=== PATIENT | male | born 1965 | race Two or more races ===

== ENCOUNTER 2019-05-08 00:57 | Emergency (ER) | payer MEDICAID ==
[~2019-05-08] VITALS: Ht 172.7 cm; Wt 76.2 kg
[2019-05-08 01:06] VITALS: BP 147/95
--- NOTE | 2019-05-08 01:06 | NUR ---
ED Nurse Note: Patient walked in to ER c/o difficulty breathing worsen when lying down since last night. Denies pain. O2 sat 99% RA. Afebrile. VSS.
[2019-05-08] MEDS ORDERED: LIPITOR80 MG ORAL (01:08)
[2019-05-08] MEDS ORDERED: FLOMAX0.4 MG ORAL (01:08)
[2019-05-08] MEDS ORDERED: CIALIS10 MG ORAL (01:08)
[2019-05-08] MEDS ORDERED: GLUCOPHAGE1000 MG ORAL (01:08)
[2019-05-08] MEDS ORDERED: LOSARTAN POTASS25 M1 PO (01:08)
--- NOTE | 2019-05-08 01:28 | NUR ---
ED Nurse Note: IV line established. Blood collected and sent to lab.
--- NOTE | 2019-05-08 01:34 | Emergency Room Report ---
History of Present Illness General Chief Complaint: Dyspnea/Respdistress Source: Patient Present Illness [facility] Disclaimer: Please note that this report is being documented using DisabledParkON technology. This can lead to erroneous entry secondary to incorrect interpretation by the dictating instrument. HPI: 54-year-old male with history of hypertension, hyperlipidemia, diabetes, BPH presents for evaluation of shortness of breath. Symptoms began yesterday. He was trying to lay down and go to sleep when he found himself to be quite short of breath without chest pain. Worse with laying supine and somewhat relieved by sitting upright. Denies any lower extremity swelling but notes a heaviness in his legs bilaterally. Denies history of CAD, CHF or renal failure. He is otherwise compliant with his medications. Reported feeling feverish but no objective temperatures were recorded. Denies cough, vomiting, diarrhea, rash, chills or URI symptoms. Did not get a flu shot this year. PMH: Hypertension, hyperlipidemia, BPH, diabetes PSH: Eye surgery unspecified Allergies: Denies Social Hx: Denies alcohol, tobacco or drug use Allergies: Coded Allergies: No Known Allergies (Unverified , 05/08/19) Nursing Documentation-PMH Past Medical History: No History, Except For Hx Cardiac Problems: No - high cholesterol Hx Hypertension: Yes Hx Diabetes: Yes Review of Systems All Other Systems: negative except mentioned in HPI Physical Exam Vital Signs Date Time Temp Pulse Resp B/P (MAP) Pulse Ox O2 Delivery O2 Flow Rate FiO2 05/08/19 01:00 97.7 78 16 147/95 (112) 99 Room Air General: Awake and alert, no acute distress HEENT: NC/AT. EOMI. Cardiovascular: RRR. S1 and S2 normal. No murmur appreciated Resp: Normal work of breathing. No cough, wheezing or crackles appreciated Abdomen: Abdomen is soft, nondistended. Nontender Skin: Intact. No abrasions, laceration or rash over the exposed skin MSK: Normal tone and bulk. Moving all extremities. No obvious deformity. Neuro: Awake and alert. Mentating appropriately. Medical Decision Making Diagnostic Impression: Primary Impression: Upper respiratory infection ER Course 54-year-old male presents for evaluation of 2 nights of orthopnea without chest pain. Differential includes was not limited to CHF, asthma, ACS, bronchitis, pneumonia, viral syndrome, GERD, bronchospasm, pericardial effusion, pleural effusion, pneumothorax. He arrives with stable vital signs saturating 100% on room air. EKG obtained on triage shows no evidence of ischemia. Will obtain x- ray, labs including cardiac enzymes and BN peptide. Laboratory Tests Test 05/08/19 01:28 White Blood Count 5.0 K/UL (4.8-10.8) Red Blood Count 5.27 M/UL (4.70-6.10) Hemoglobin 14.5 G/DL (14.2-18.0) Hematocrit 44.0 % (42.0-52.0) Mean Corpuscular Volume 84 FL (80-99) Mean Corpuscular Hemoglobin 27.6 PG (27.0-31.0) Mean Corpuscular Hemoglobin Concent 33.0 G/DL (32.0-36.0) Red Cell Distribution Width 12.2 % (11.6-14.8) Platelet Count 127 K/UL (150-450) L Mean Platelet Volume 9.5 FL (6.5-10.1) Neutrophils (%) (Auto) 60.8 % (45.0-75.0) Lymphocytes (%) (Auto) 30.9 % (20.0-45.0) Monocytes (%) (Auto) 6.0 % (1.0-10.0) Eosinophils (%) (Auto) 1.7 % (0.0-3.0) Basophils (%) (Auto) 0.6 % (0.0-2.0) Sodium Level 143 MMOL/L (136-145) Potassium Level 3.9 MMOL/L (3.5-5.1) Chloride Level 105 MMOL/L (98-107) Carbon Dioxide Level 27 MMOL/L (21-32) Anion Gap 11 mmol/L (5-15) Blood Urea Nitrogen 14 mg/dL (7-18) Creatinine 1.0 MG/DL (0.55-1.30) Estimate Glomerular Filtration Rate > 60 mL/min (>60) Glucose Level 115 MG/DL (74-106) H Calcium Level 9.1 MG/DL (8.5-10.1) Total Bilirubin 0.7 MG/DL (0.2-1.0) Aspartate Amino Transferase (AST) 30 U/L (15-37) Alanine Aminotransferase (ALT) 31 U/L (12-78) Alkaline Phosphatase 58 U/L (46-116) Troponin I 0.000 ng/mL (0.000-0.056) Pro-B-Type Natriuretic Peptide 24 pg/mL (0-125) Total Protein 7.4 G/DL (6.4-8.2) Albumin 4.4 G/DL (3.4-5.0) Globulin 3.0 g/dL Albumin/Globulin Ratio 1.5 (1.0-2.7) EKG Diagnostic Results EKG Time: 01:32 Rate: normal Rhythm: NSR ST Segments: no acute changes Other Impression Sinus rhythm, normal axis, normal intervals, no ST segment changes. Rhythm Strip Diag. Results Rhythm Strip Time: 01:32 EP Interpretation: yes Rate: 60s Rhythm: NSR, no PVC's, no ectopy Chest X-Ray Diagnostic Results Chest X-Ray Diagnostic Results : Chest X-Ray Ordered: Yes # of Views/Limited/Complete: 1 View Indication: Shortness of Breath EP Interpretation: Yes Interpretation: no consolidation, no effusion, no pneumothorax, no acute cardiopulmonary disease Impression: No acute disease Electronically Signed by: Electronically signed by Dr. Kevan Sherman Reevaluation Time: 02:36 Last Vital Signs Date Time Temp Pulse Resp B/P (MAP) Pulse Ox O2 Delivery O2 Flow Rate FiO2 05/08/19 01:06 97.7 78 16 147/95 99 Room Air Reevaluation Impression Labs have returned within normal limits. Normal renal function, negative troponin, no significant elevation and BN peptide. Chest x-ray shows no infiltrate or effusion. Believe the patient is likely suffering from a upper viral infection and was given an albuterol treatment as well as steroids for throat pain and mild swelling. He will be continued on steroids. He states he felt somewhat better since arriving in the emergency department. He will follow -up with his PMD tomorrow. Discussed reasons to return to the emergency department. Stable for outpatient follow-up. He understands and agrees with this treatment plan. Disposition: HOME, SELF-CARE Condition: Stable Scripts Prednisone* (PREDNISONE*) 20 Mg Tablet 40 MG ORAL DAILY for 3 Days, #6 TAB Prov: Kevan Sherman MD 05/08/19 Kevan Sherman MD May 08, 2019 01:34
--- NOTE | 2019-05-08 01:40 | NUR ---
ED Nurse Note: Xray at bedside.
[2019-05-08 01:43] LABS: BASOPHILS % (AUTO) 0.6 % (0.0-2.0); EOSINOPHILS % (AUTO) 1.7 % (0.0-3.0); HEMOGLOBIN 14.5 G/DL (14.2-18.0); LYMPHOCYTES % (AUTO) 30.9 % (20.0-45.0); MEAN CORPUSCULAR VOLUME 84 FL (80-99); NEUTROPHILS % (AUTO) 60.8 % (45.0-75.0); PLATELET COUNT 127 K/UL (150-450); RED BLOOD COUNT 5.27 M/UL (4.70-6.10); RED CELL DISTRIBUTION WIDTH 12.2 % (11.6-14.8)
[2019-05-08 01:52] LABS: ANION GAP 11 mmol/L (5-15); BLOOD UREA NITROGEN 14 mg/dL (7-18); CALCIUM 9.1 MG/DL (8.5-10.1); CARBON DIOXIDE 27 MMOL/L (21-32); CHLORIDE 105 MMOL/L (98-107); POTASSIUM 3.9 MMOL/L (3.5-5.1); SODIUM 143 MMOL/L (136-145)
[2019-05-08 02:06] LABS: ALANINE AMINOTRANSFERASE 31 U/L (12-78); ALBUMIN 4.4 G/DL (3.4-5.0); ALBUMIN/GLOBULIN RATIO 1.5 (1.0-2.7); ALKALINE PHOSPHATASE 58 U/L (46-116); ASPARTATE AMINO TRANSFERASE 30 U/L (15-37); BILIRUBIN,TOTAL 0.7 MG/DL (0.2-1.0)
[2019-05-08] MEDS ORDERED: Albuterol/Ipratropium 3ml neb HHN ONE (02:15)
--- NOTE | 2019-05-08 02:17 | NUR ---
ED Nurse Note: RT at bedside for breathing tx.
[2019-05-08] MEDS ORDERED: PREDNISONE20 MG ORAL (02:35)
[2019-05-08 02:45] VITALS: BP 147/95
--- NOTE | 2019-05-08 02:45 | NUR ---
ED Nurse Note: Pt cleared by ERMD for discharge. DC instructions was given and explained to pt and verbalized understanding of teachings. Prescription is sent electronically to the pharmcy. All medical deviecs such as ID band and Iv line removed. Pt is AAO x4, ambulatory and left with all personal belongings.
--- NOTE | 2019-05-08 10:33 | Diagnostic Imaging Report ---
Indication: Dyspnea Comparison: None A single view chest radiograph was obtained. Findings: Cardiomediastinal appearance is within normal limits for age. The lungs are clear. Pulmonary vascularity is appropriate. The diaphragmatic contour is smooth and costophrenic angles are sharp. No pleural effusions are identified. The bones are unremarkable. Impression: No acute findings
== END 2019-05-08 02:45 | disposition home or self-care (01) ==
LOC: EMR 01:32
DX: J06.9 Acute upper respiratory infection, unspecified (principal); E78.00 Pure hypercholesterolemia, unspecified; I10 Essential (primary) hypertension; E11.9 Type 2 diabetes mellitus without complications
CPT/HCPCS: 36415; 71045; 80053; 83880; 84484; 85025; 93005; 94640; 94664; J8540; Z7502; 99284; J7620

== ENCOUNTER 2020-03-20 14:19 | Emergency (ER) | payer MEDICAID ==
[~2020-03-20] VITALS: Ht 167.6 cm; Wt 74.8 kg
[~2020-03-20 14:19] MED LIST: CIALIS10 MG ORAL; FLOMAX0.4 MG ORAL; GLUCOPHAGE1000 MG ORAL; LIPITOR80 MG ORAL; LOSARTAN POTASS25 M1 PO; PREDNISONE20 MG ORAL
[2020-03-20 14:29] VITALS: BP 111/91
--- NOTE | 2020-03-20 14:29 | NUR ---
ED Nurse Note: PT walked in to ed for C/P ABD pain x 3 days. reports nausea but not vomiting.
--- NOTE | 2020-03-20 14:44 | Emergency Room Report ---
History of Present Illness General Chief Complaint: Abdominal Pain Source: Patient Present Illness HPI Patient is a 55-year-old male past medical history of diabetes, hypertension, GERD, hyperlipidemia and BPH who presents to the ER complaining of abdominal pain. Patient complains of gurgling sensation in his stomach with associated nausea for the past 3 to 4 days. He denies any fever or chills. He states that he felt like he had a fever but when he checked it it was negative. He denies any chest pain or shortness of breath. He denies any vomiting. He denies any diarrhea or constipation. He denies any dysuria or hematuria. He denies any history of similar symptoms in the past. He denies any recent travel. He denies any sick contacts Allergies: Coded Allergies: No Known Allergies (Unverified , 05/08/19) COVID-19 Screening Contact w/high risk pt: No Experienced COVID-19 symptoms?: No COVID-19 Testing performed BOAT WASHER: No Patient History Reviewed Nursing Documentation: PMH: Agreed; PSxH: Agreed Nursing Documentation-PMH Past Medical History: No History, Except For Hx Cardiac Problems: No - high cholesterol Hx Hypertension: Yes Hx Diabetes: Yes Review of Systems All Other Systems: negative except mentioned in HPI Physical Exam Vital Signs Date Time Temp Pulse Resp B/P (MAP) Pulse Ox O2 Delivery O2 Flow Rate FiO2 03/20/20 14:24 98.2 95 19 111/91 (98) 99 Room Air Sp02 EP Interpretation: reviewed, normal General Appearance: no apparent distress, alert, GCS 15, non-toxic Head: normocephalic, atraumatic Eyes: bilateral eye normal inspection, bilateral eye PERRL ENT: hearing grossly normal, normal pharynx, no angioedema, normal voice Neck: full range of motion, supple/symm/no masses Respiratory: chest non-tender, lungs clear, normal breath sounds, speaking full sentences Cardiovascular #1: regular rate, rhythm, no edema Gastrointestinal: other - Mild epigastric discomfort with no guarding or rebound Rectal: deferred Genitourinary: no CVA tenderness Musculoskeletal: normal range of motion Neurologic: net developer contract III-XII nml as tested, oriented x3 Psychiatric: no suicidal/homicidal ideation Skin: no rash Lymphatic: no adenopathy Medical Decision Making Diagnostic Impression: Primary Impression: Abdominal pain Additional Impression: Diverticulosis ER Course Patient's vital signs have been stable. Labs demonstrate no significant acute abnormalities. Patient specifically has no elevated white blood cell count and is afebrile. CT abdomen pelvis demonstrates no acute intra-abdominal pathology. Significant for diverticulosis with no evidence of diverticulitis. Patient states he feels improved after IV fluids, Zofran and Protonix. Patient has omeprazole that he takes at home and is being discharged home with Zofran. After discussing risks and benefits of further diagnostics, treatment plans, as well as indications for and risks of admission, the patient is agreeable to being discharged home. I have explained that their evaluation and treatment in the emergency department today is an important step towards them achieving better health but that their evaluation today is not intended to replace further evaluation and treatment by a physician in their local clinic. I have explained that while the current findings suggest no immediate life threatening emergency they will require further evaluation and treatment by a physician of their choice in their area. They understand that it will be necessary for them to review the final reports of their ED visit with their clinic physician. We have reviewed indications for return to the Emergency Department. I have explained that additional time may need to pass and/or additional testing as an outpatient may be necessary before a definitive diagnosis can be made. They tell me they are willing to follow up as instructed within the timeframe I recommend. They appear to understand what we discussed. Additionally they understand that if they are unable to be seen by an outpatient physician they are welcome, and in fact should, return to the Emergency Department for a repeat evaluation. The patient is stable at time of discharge. Laboratory Tests Test 03/20/20 14:34 03/20/20 14:35 Urine Color Yellow Urine Appearance Clear Urine pH 5 (4.5-8.0) Urine Specific Vendor 1.020 (1.005-1.035) Urine Protein Negative (NEGATIVE) Urine Glucose (UA) Negative (NEGATIVE) Urine Ketones 1+ (NEGATIVE) H Urine Blood Negative (NEGATIVE) Urine Nitrite Negative (NEGATIVE) Urine Bilirubin Negative (NEGATIVE) Urine Urobilinogen Normal MG/DL (0.0-1.0) Urine Leukocyte Esterase 1+ (NEGATIVE) H Urine RBC 0-2 /HPF (0 - 0) H Urine WBC 0-2 /HPF (0 - 0) Urine Squamous Epithelial Cells None /LPF (NONE/OCC) Urine Bacteria Few /HPF (NONE) Urine Mucus Few /LPF (NONE/OCC) H Urine Opiates Screen Negative (NEGATIVE) Urine Barbiturates Screen Negative (NEGATIVE) Phencyclidine (PCP) Screen Negative (NEGATIVE) Urine Amphetamines Screen Negative (NEGATIVE) Urine Benzodiazepines Screen Negative (NEGATIVE) Urine Cocaine Screen Negative (NEGATIVE) Urine Marijuana (THC) Screen Negative (NEGATIVE) White Blood Count 4.2 K/UL (4.8-10.8) L Red Blood Count 5.49 M/UL (4.70-6.10) Hemoglobin 15.5 G/DL (14.2-18.0) Hematocrit 46.1 % (42.0-52.0) Mean Corpuscular Volume 84 FL (80-99) Mean Corpuscular Hemoglobin 28.3 PG (27.0-31.0) Mean Corpuscular Hemoglobin Concent 33.7 G/DL (32.0-36.0) Red Cell Distribution Width 12.4 % (11.6-14.8) Platelet Count 139 K/UL (150-450) L Mean Platelet Volume 10.7 FL (6.5-10.1) H Neutrophils (%) (Auto) 54.5 % (45.0-75.0) Lymphocytes (%) (Auto) 32.8 % (20.0-45.0) Monocytes (%) (Auto) 8.0 % (1.0-10.0) Eosinophils (%) (Auto) 3.8 % (0.0-3.0) H Basophils (%) (Auto) 0.9 % (0.0-2.0) Prothrombin Time 11.4 SEC (9.30-11.50) Prothrombin Time INR 1.0 (0.9-1.1) Activated Partial Thromboplast Time 26 SEC (23-33) Sodium Level 141 MMOL/L (136-145) Potassium Level 3.7 MMOL/L (3.5-5.1) Chloride Level 104 MMOL/L (98-107) Carbon Dioxide Level 26 MMOL/L (21-32) Anion Gap 11 mmol/L (5-15) Blood Urea Nitrogen 12 mg/dL (7-18) Creatinine 1.1 MG/DL (0.55-1.30) Estimated Glomerular Filtration Rate > 60 mL/min (>60) Glucose Level 155 MG/DL (74-106) H Calcium Level 8.8 MG/DL (8.5-10.1) Magnesium Level 2.1 MG/DL (1.8-2.4) Total Bilirubin 0.6 MG/DL (0.2-1.0) Aspartate Amino Transferase (AST) 28 U/L (15-37) Alanine Aminotransferase (ALT) 25 U/L (12-78) Alkaline Phosphatase 76 U/L (46-116) Troponin I 0.000 ng/mL (0.000-0.056) Total Protein 7.9 G/DL (6.4-8.2) Albumin 4.4 G/DL (3.4-5.0) Globulin 3.5 g/dL Albumin/Globulin Ratio 1.3 (1.0-2.7) Lipase 176 U/L (73-393) EKG Diagnostic Results Troponin ordered: Yes When was troponin ordered?: Mar 20, 2020 EKG Time: 14:39 EP Interpretation: Miracle Walker MD Rate: normal - 83 bpm Rhythm: NSR ST Segments: no acute changes ASA given to the pt in ED: No Rhythm Strip Diag. Results Rhythm Strip Time: 15:32 EP Interpretation: yes - Miracle Walker MD Rate: 78 bpm Rhythm: NSR, no PVC's, no ectopy Last Vital Signs Date Time Temp Pulse Resp B/P (MAP) Pulse Ox O2 Delivery O2 Flow Rate FiO2 03/20/20 14:29 95 19 Room Air 03/20/20 14:29 98.2 111/91 99 Disposition: HOME, SELF-CARE Condition: Stable Scripts Ondansetron* (ZOFRAN*) 4 Mg Tablet 4 MG ORAL Q6H PRN for Nausea & Vomiting, #14 TAB Prov: Miracle Walker M.D. 03/20/20 Referrals: NON PHYSICIAN (PCP) Additional Instructions: The patient was provided with discharge instructions, notified to follow-up with a primary care doctor and or specialist in the next 24-48 hours, and to return to the ED if they have worsening of their symptoms. Please note that this report is being documented using Thumb technology. This can lead to erroneous entry secondary to incorrect interpretation by the dictating instrument. Miracle Walker M.D. Mar 20, 2020 14:44
[2020-03-20] MEDS ORDERED: Pantoprazole Inj IVP ONE (14:45)
[2020-03-20 14:58] LABS: APPEARANCE,URINE CLEAR; BILIRUBIN, URINE NEGATIVE (NEGATIVE); GLUCOSE, URINE (UA) NEGATIVE (NEGATIVE); KETONES,URINE 1+ (NEGATIVE); LEUKOCYTE ESTERASE ,URINE 1+ (NEGATIVE); NITRITE,URINE NEGATIVE (NEGATIVE); PH,URINE 5 (4.5-8.0); PROTEIN,URINE NEGATIVE (NEGATIVE); UROBILINOGEN,URINE NORMAL MG/DL (0.0-1.0)
[2020-03-20 14:59] LABS: COLOR,URINE YELLOW
[2020-03-20 15:03] LABS: ANION GAP 11 mmol/L (5-15); BASOPHILS % (AUTO) 0.9 % (0.0-2.0); BLOOD UREA NITROGEN 12 mg/dL (7-18); CALCIUM 8.8 MG/DL (8.5-10.1); CARBON DIOXIDE 26 MMOL/L (21-32); CHLORIDE 104 MMOL/L (98-107); CREATININE 1.1 MG/DL (0.55-1.30); EOSINOPHILS % (AUTO) 3.8 % (0.0-3.0); HEMATOCRIT 46.1 % (42.0-52.0); HEMOGLOBIN 15.5 G/DL (14.2-18.0); LYMPHOCYTES % (AUTO) 32.8 % (20.0-45.0); MEAN CORPUSCULAR VOLUME 84 FL (80-99); NEUTROPHILS % (AUTO) 54.5 % (45.0-75.0); PLATELET COUNT 139 K/UL (150-450); POTASSIUM 3.7 MMOL/L (3.5-5.1); RED BLOOD COUNT 5.49 M/UL (4.70-6.10); RED CELL DISTRIBUTION WIDTH 12.4 % (11.6-14.8); SODIUM 141 MMOL/L (136-145); WHITE BLOOD COUNT 4.2 K/UL (4.8-10.8)
[2020-03-20 15:07] LABS: ALANINE AMINOTRANSFERASE 25 U/L (12-78); ALBUMIN 4.4 G/DL (3.4-5.0); ALBUMIN/GLOBULIN RATIO 1.3 (1.0-2.7); ALKALINE PHOSPHATASE 76 U/L (46-116); ASPARTATE AMINO TRANSFERASE 28 U/L (15-37); BILIRUBIN,TOTAL 0.6 MG/DL (0.2-1.0)
--- NOTE | 2020-03-20 15:14 | Diagnostic Imaging Report ---
Indication: Abdominal pain Technique: Spiral acquisitions obtained through the abdomen and pelvis. No oral contrast utilized, per emergency room physician request No IV contrast utilized, per referring physician request.. Multiplanar reconstructions were generated. Total dose length product 321 mGycm. CTDIvol(s) 6 mGy. Dose reduction achieved using automated exposure control Comparison: None Findings: Lack of enteric contrast limits assessment of the GI tract. There is colonic diverticulosis. No evidence of acute diverticulitis. Short but otherwise normal appendix is visualized. No small bowel distention. No free or loculated intraperitoneal gas or fluid is evident. Distal esophagus, stomach, duodenum is unremarkable. The lack of IV contrast limits assessment of the solid organs. The liver demonstrates a 1 cm cyst in segment 5. The gallbladder, bile ducts, pancreas, spleen, adrenals, kidneys are unremarkable. No retroperitoneal or mesenteric mass or adenopathy. No pelvic mass or adenopathy. The included lung bases demonstrate posterior dependent atelectatic changes. The bones demonstrate degenerative changes of the lumbosacral junction. Impression: Limited assessment of the GI tract, due to lack of enteric contrast administration No definite acute abnormality Diverticulosis. No evidence of diverticulitis Incidental findings as noted, including degenerative lumbosacral spondylosis, right lobe liver cyst, posterior dependent pulmonary atelectatic changes The CT scanner at [facility] is accredited by the [employer] and the scans are performed using protocols designed to limit radiation exposure to as low as reasonably achievable to attain images of sufficient resolution adequate for diagnostic evaluation.
[2020-03-20] MEDS ORDERED: ZOFRAN4 M3 ORAL (15:30)
[2020-03-20 15:35] VITALS: BP 115/72
--- NOTE | 2020-03-20 15:35 | NUR ---
ED Nurse Note: Pt cleared by ERMD for discharge. DC instructions/prescription was given and explained to pt and verbalized understanding of teachings. All medical deviecs such as ID band andn IV line removed. Pt is AAO x4, ambulatory and left with all personal belongings.
--- NOTE | 2020-03-21 16:20 | Cardiology Report ---
APPROVED REPORT EKG Measurement Heart [id number] <Conclusion> Normal sinus rhythm Normal ECG
== END 2020-03-20 15:56 | disposition home or self-care (01) ==
LOC: EMR 14:33
DX: K57.90 Diverticulosis of intestine, part unspecified, without perforation or abscess without bleeding (principal); R10.9 Unspecified abdominal pain; E11.9 Type 2 diabetes mellitus without complications; I10 Essential (primary) hypertension; K21.9 Gastro-esophageal reflux disease without esophagitis; E78.5 Hyperlipidemia, unspecified; E78.00 Pure hypercholesterolemia, unspecified
CPT/HCPCS: 36415; 74176; 80053; 80307; 81003; 83690; 83735; 84484; 85025; 85610; 85730; 93005; 96361; 96374; 96375; J2405; J7030; S0164; Z7502; 99284